=== PATIENT | female | born 1980 | race Caucasian/White ===

== ENCOUNTER 2020-11-28 04:19 | Inpatient (IN) | payer BC, OTHER, SELFPAY ==
[2020-11-28] MEDS ORDERED: HYDROcodone/Acetaminophen 5/325 mg Tablet ONE (04:44)
[2020-11-28] MEDS ORDERED: Lidocaine 4% Cream 5 GM TUBE w/ Tegaderm ONE (04:44)
[2020-11-28] MEDS ORDERED: Boostrix 0.5 ML (Tdap) VIAL ONE (04:44)
[2020-11-28 06:32] LABS: #Monocytes 0.4 thou/uL (0.11-0.59); #Neutrophils 11.7 thou/uL (1.40-6.50); %Basophils 0.2 % (0.0-1.0); %Eosinophils 0.1 % (0.0-10.0); %Lymphocytes 7.9 % (21.0-51.0); %Monocytes 2.7 % (0.0-10.0); %Neutrophils 89.1 % (42.0-75.0); Hemoglobin 11.6 g/dL (12.0-16.0); Mean Corpuscular HGB CONC 33.6 g/dL (32.0-36.0); Mean Corpuscular Hemoglobin 28.6 pg (27.0-31.0); Mean Corpuscular Volume 85.2 fL (78.0-98.0); Mean Platelet Volume 7.8 fL (7.4-10.4); Platelet Count 257 thou/uL (130-400); RBC Distribution Width 13.2 % (11.5-14.5); Red Blood Cell (RBC) Count 4.05 mill/uL (4.20-5.40); White Blood Cell (WBC) Count 13.1 thou/uL (4.8-10.8)
[2020-11-28] MEDS ORDERED: hydrALAZINE 20 MG/ML VIAL ONE (06:32)
[2020-11-28 06:48] LABS: BHCG - Serum Negative (NEGATIVE); Pregs Control Background? CLEAR/WHITE (CLR/WHITE); Pregs Control Bar Appear? YES (CONTROL BAR)
[2020-11-28 06:55] LABS: ALT (SGPT) 18 U/L (8-55); AST (SGOT) 22 U/L (5-34); Albumin 4.8 g/dL (3.5-5.0); Alkaline Phosphatase 96 U/L (40-110); Anion Gap 16 mmol/L (10-20); BUN (Urea Nitrogen) 6 mg/dL (7.0-18.7); Bilirubin, Total 0.4 mg/dL (0.2-1.2); Calc. Creatinine Clearance 0 mL/min (70-130); Calcium 8.9 mg/dL (7.8-10.44); Carbon Dioxide 19 mmol/L (22-29); Chloride 105 mmol/L (98-107); Globulin 4.1 g/dL (2.4-3.5); Glucose 104 mg/dL (70-105); Potassium 3.6 mmol/L (3.5-5.1); Protein, Total 8.9 g/dL (6.0-8.3); Sodium 136 mmol/L (136-145)
[2020-11-28] MEDS ORDERED: Docusate 100 MG CAP PO PRN (07:20)
[2020-11-28] MEDS ORDERED: Acetaminophen 325 MG TAB PO PRN (07:20)
[2020-11-28] MEDS ORDERED: hydrALAZINE 20 MG/ML VIAL SLOW IVP PRN (07:20)
[2020-11-28 07:24] LABS: SARS-CoV-2 NAA Rapid Test Not Detected (NotDetected)
[2020-11-28] MEDS ORDERED: Ondansetron PF 4 MG/2 ML Vial IVP PRN (08:16)
[2020-11-28] MEDS ORDERED: Dextrose 50% Abboject 50 ML SYRINGE SLOW IVP PRN (08:16)
[2020-11-28] MEDS ORDERED: Dextrose 5% in Water 1,000 ML IV PRN (08:16)
[2020-11-28] MEDS ORDERED: traMADol HCl 50 MG TAB PO PRN (08:20)
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
[2020-11-28 08:37] LABS: Acetaminophen Less than 6.0 mcg/mL (10.0-30.0); Alcohol 29 mg/dL (Less than 10); Salicylate Less than 8.0 mg/dL (15.0-30.0)
[2020-11-28 09:00] LABS: PTT 27.5 sec (22.9-36.1); Prothrombin Time 13.6 sec (12.0-14.7)
[2020-11-28] MEDS: Acetaminophen 325 MG TAB PO SCH ×3 (09:00→19:42)
[2020-11-28] MEDS: traMADol HCl 50 MG TAB PO SCH ×3 (09:00→19:42)
[2020-11-28 10:08] VITALS: BMI 36.6
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
[2020-11-28] MEDS: Famotidine 20 MG TAB PO SCH ×2 (10:32→20:14)
[2020-11-28] MEDS: Amlodipine 5 MG TAB PO SCH (10:32)
[2020-11-28] MEDS: Lactated Ringer's 1,000 ML IV SCH (10:34)
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
--- NOTE | 2020-11-28 16:50 | CT ---
CT OF BRAIN PERFORMED WITHOUT CONTRAST ENHANCEMENT: History: Follow up of bleed. Comparison: Earlier exam, same day. FINDINGS: The subdural blood which is along the right side of the tentorium is stable. No other interval change seen. IMPRESSION: Stable subdural blood. POS: OFF
--- NOTE | 2020-11-28 18:55 | PDOC.BPN ---
- Brief Progress Note Encounter Date: 11/28/20 Encounter Time: 18:53 now would like to stay and not leave AMA. Per Neurosurgery leaving today with be AMA, hope to d/c tomorrow if remains stable from a neurologic standpoint this evening. Will transfer out of ICU now.
[2020-11-28] MEDS: Labetalol HCl 100 MG/20 ML VIAL SLOW IVP PRN ×2 (20:14→21:04)
[2020-11-29] MEDS: Acetaminophen 325 MG TAB PO SCH ×3 (00:06→11:33)
[2020-11-29] MEDS: traMADol HCl 50 MG TAB PO SCH ×3 (00:07→11:35)
[2020-11-29] MEDS: Lactated Ringer's 1,000 ML IV SCH (05:51)
[2020-11-29 05:52] LABS: #Lymphocytes 2.2 thou/uL (1.20-3.40); #Monocytes 0.4 thou/uL (0.11-0.59); #Neutrophils 4.7 thou/uL (1.40-6.50); %Basophils 0.5 % (0.0-1.0); %Eosinophils 0.2 % (0.0-10.0); %Lymphocytes 29.7 % (21.0-51.0); %Monocytes 5.9 % (0.0-10.0); %Neutrophils 63.8 % (42.0-75.0); Hemoglobin 10.1 g/dL (12.0-16.0); Mean Corpuscular HGB CONC 33.4 g/dL (32.0-36.0); Mean Corpuscular Hemoglobin 28.6 pg (27.0-31.0); Mean Corpuscular Volume 85.7 fL (78.0-98.0); Mean Platelet Volume 7.8 fL (7.4-10.4); Platelet Count 246 thou/uL (130-400); RBC Distribution Width 13.4 % (11.5-14.5); Red Blood Cell (RBC) Count 3.54 mill/uL (4.20-5.40); White Blood Cell (WBC) Count 7.3 thou/uL (4.8-10.8)
[2020-11-29 06:13] LABS: Anion Gap 13 mmol/L (10-20); BUN (Urea Nitrogen) 10 mg/dL (7.0-18.7); Calc. Creatinine Clearance 123 mL/min (70-130); Calcium 8.7 mg/dL (7.8-10.44); Carbon Dioxide 23 mmol/L (22-29); Chloride 106 mmol/L (98-107); Glucose 84 mg/dL (70-105); Magnesium 2.2 mg/dL (1.6-2.6); Phosphorus 4.3 mg/dL (2.3-4.7); Potassium 3.5 mmol/L (3.5-5.1); Sodium 138 mmol/L (136-145)
--- NOTE | 2020-11-29 07:27 | PRG ---
DATE OF SERVICE: 11/29/2020 I saw, Ms. Dhaliwal in followup this morning. CT examination was done yesterday afternoon showing decreasing in the amount of subdural hematoma over the right tentorium. She feels better than she did yesterday and she has been moved out of the ICU. Among the electronically recorded vital signs, the maximum temperature I see is 98.6 degrees Fahrenheit, blood pressures have been in the 110s to 140s. Ms. Dhaliwal has normal neurological function this morning. CT examination yesterday afternoon showed improvement. Ms. Dhaliwal can be discharged home. Followup arrangements will be made from our office. Job ID: [id number] [facility]
[2020-11-29 08:03] VITALS: TEMP 98.4
[2020-11-29] MEDS: Amlodipine 5 MG TAB PO SCH (08:22)
[2020-11-29] MEDS: Famotidine 20 MG TAB PO SCH (08:22)
[2020-11-29 11:59] VITALS: BP 146/94
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
== END 2020-11-29 15:30 | disposition home or self-care (01) | DRG 84 ==
LOC: ERS 04:19 → CCU 06:02 → SURG B 22:07
PROVIDERS: ADMIT Specialist; ATTEND Specialist
DX: S06.5X9A Traumatic subdural hemorrhage with loss of consciousness of unspecified duration, initial encounter (principal); S01.511A Laceration without foreign body of lip, initial encounter; Y04.0XXA Assault by unarmed brawl or fight, initial encounter; Z20.822 Contact with and (suspected) exposure to COVID-19; Z98.51 Tubal ligation status
CPT/HCPCS: 12011; 36415; 36416; 70450; 70486; 72125; 80048; 80053; 80307; 83735; 84100; 84703; 85025; 85610; 85730; 90471; 90715; 96374; J0360; J2405; U0002

== ENCOUNTER 2020-12-09 12:17 | Emergency (ER) | payer OTHER ==
[2020-12-09] MEDS ORDERED: Amlodipine 5 MG TAB ONE (13:03)
--- NOTE | 2020-12-09 13:09 | CT ---
Exam: Head CT without contrast HISTORY: Headache. Hypertension. Previous subdural hematoma COMPARISON: 11/28/2020 FINDINGS: Hemorrhage: Small residual right-sided subdural hematoma does remain, measuring 1.0 x 0.9 cm. No new intracranial hemorrhage. Brain parenchyma: Cortical perez-white matter differentiation is preserved. No mass effect or midline shift. Basilar cisterns are patent. Ventricular system: Ventricles and sulci are patent and symmetric. Calvarium: Intact. Sinuses and mastoid air cells: Adequate aeration. Scalp: Redemonstration of post traumatic changes involving the left frontal scalp IMPRESSION: Residual right-sided subdural hematoma does remain. No acute intracranial hemorrhage.
== END 2020-12-09 14:00 | disposition home or self-care (01) ==
LOC: ERS 12:17
DX: I10 Essential (primary) hypertension (principal); S06.5X0A Traumatic subdural hemorrhage without loss of consciousness, initial encounter; Y04.8XXA Assault by other bodily force, initial encounter
CPT/HCPCS: 70450